=== PATIENT | female | born 1955 | race American Indian/Alaskan Native ===

== ENCOUNTER 2017-07-15 15:11 | Outpatient (CLI) | payer OTHER | END 2017-07-15 15:12 | disposition home or self-care (01) | LOC: LABHHL 15:11 | PROVIDERS: ATTEND Surgery | DX: C50.912 Malignant neoplasm of unspecified site of left female breast (principal) | CPT/HCPCS: 88305; 88361 ==

== ENCOUNTER 2017-07-24 14:38 | Outpatient (CLI) | payer OTHER ==
--- NOTE | 2017-07-25 09:21 | Magnetic Resonance Report ---
BILATERAL BREAST MRI WITHOUT AND WITH CONTRAST: 07/24/17 14:38:00 CLINICAL: Newly diagnosed left breast cancer. Status post ultrasound guided needle biopsy 07/15/17 with pathologic diagnosis of invasive mammary carcinoma grade 2. COMPARISON:[facility] mammogram from 07/12/17 and a post biopsy left mammogram 07/15/17. TECHNIQUE: Axial 1.0-mm T1 without, axial high resolution 2.0-mm T2 and axial 1.0-mm dynamic Vibrant high-resolution postcontrast T1 fat saturation sequences on a 1.5 Prema magnet. The examination was performed with an 8 channel dedicated [place] breast coil. Post processing with CAD and subtraction was performed on an [employer] workstation. 20 cc of Multihance was injected without incident for the contrast portion of the exam. Consent was obtained prior to the administration of the contrast. FINDINGS: Right: Minimal background parenchymal enhancement. No mass or suspicious enhancement of the right breast. No suspicious right axillary or right internal mammary lymph nodes. Left: Minimal background parenchymal enhancement. The known cancer is an irregular enhancing mass at 8 o'clock 7 cm from the nipple and 7.7 cm from the chest wall measuring 2.8 x 1.9 x 1.9 cm. It demonstrates heterogeneous enhancement with mixed kinetics, 420% peak enhancement and 38% type III washout. A second suspicious mass is identified at 8 o'clock 4.3 cm from the nipple and measures 6.9 x 6.8 x 3.6 mm. It demonstrates heterogeneous enhancement with mixed kinetics, 343% peak enhancement and 66% type III washout. No other mass or suspicious enhancement of the left breast. No suspicious left axillary or left internal mammary lymph nodes. IMPRESSION: Known 2.8 cm left breast cancer at 8 o'clock 7 cm from the nipple and a second suspicious mass at 8 o'clock 4.3 cm from the nipple. Together, the 2 masses span a distance of approximately 4.5 cm posterior to anterior toward the nipple. Negative right breast. No suspicious lymph nodes. LEFT BI-RADS 6 -- Known Cancer RIGHT BI-RADS 1 -- Negative
== END 2017-07-24 14:39 | disposition home or self-care (01) ==
LOC: SPVIMAG 14:38
PROVIDERS: ATTEND Surgery
DX: C50.312 Malignant neoplasm of lower-inner quadrant of left female breast (principal)
CPT/HCPCS: 0159T; A9577; C8908; 77059

== ENCOUNTER 2017-09-04 09:44 | Day surgery (SDC) | payer OTHER ==
[2017-09-04] MEDS ORDERED: XYLOCAINE 1% 20 mL ONE (10:36)
[2017-09-04] MEDS ORDERED: HEPARIN 10,000 UNITS/10 ML ONE (10:36)
[2017-09-04] MEDS ORDERED: MARCAINE 0.25% INFILTRATI ONE ×2 (10:36→11:59)
[2017-09-04] MEDS ORDERED: NACL 0.9% 100 ML ONE (10:37)
[2017-09-04 10:43] LABS: Basophils % (Auto) 0.8 % (0.0-1.8); Eosinophils % (Auto) 2.6 % (0.0-4.3); Hematocrit 39.7 % (30.3-42.9); Hemoglobin 13.7 gm/dl (10.1-14.3); Mean Corpuscular HGB Conc 34 % (30-34); Mean Corpuscular Hemoglobin 31 pg (28-32); Mean Corpuscular Volume 91 fl (79-97); Platelet Count 282 K/mm3 (140-440); Red Blood Count 4.38 M/mm3 (3.65-5.03); Red Cell Distribution Width 14.9 % (13.2-15.2); White Blood Count 7.2 K/mm3 (4.5-11.0)
--- NOTE | 2017-09-04 10:44 | Short Stay Summary ---
Short Stay Documentation Date of service: 09/04/17 - History Principal diagnosis: left breast ca H&P: obtained from office Past Medical History: cancer (breast), hypertension Past Surgical History: total hip replacement, total knee replacement Social history: no significant social history - Allergies and Medications Current Medications: Allergies Penicillins Allergy (Verified 09/02/17 14:24) Unknown-happened as a child Sulfa (Sulfonamide Antibiotics) Allergy (Verified 09/02/17 14:24) Anaphylaxis Home Medications Medication Instructions Recorded Confirmed Last Taken Type [place]-3 Fatty Acids/Fish Oil [Fish 1,000 mg PO DAILY 09/02/17 09/04/17 09/02/17 09:00 History Oil] RX: Etodolac (Nf) 400 mg PO BID 09/02/17 09/04/17 09/02/17 09:00 History RX: Omeprazole 20 mg PO DAILY 09/02/17 09/04/17 09/04/17 05:00 History Triamterene/Hydrochlorothiazid 1 tab PO DAILY 09/02/17 09/04/17 09/04/17 History [Triamterene-Hctz 75-50 mg Tab] 0500 Active Medications Vancomycin HCl (Vancomycin/Ns 1 Gm/250 Ml) 1 gm in 250 mls @ 166.667 mls/hr IV PREOP NR - Brief post op/procedure progress note Date of procedure: 09/04/17 Pre-op diagnosis: left breast cancer Post-op diagnosis: same Procedure: Port a cath placement right internal jugular vein Anesthesia: GETA Findings: Port in good position and no PTX on intraop portable CXR Surgeon: SHELLIE FAUST Estimated blood loss: minimal Pathology: none Condition: stable - Hospital course Hospital course: 62 yo F with left breast cancer presented for elective port placement. Her post op course was uncomplicated and the patient was recovered in PACU. She was discharged to home when criteria met. - Disposition Condition at discharge: Stable Disposition: DC-01 TO HOME OR SELFCARE - Discharge Diagnoses (1) Breast cancer, left Status: Acute Short Stay Discharge Plan Activity: other (no driving if taking percocet) Diet: regular Wound: open to air, other (may shower tomorrow, do not submerge incisions in baths/hottubs/pools until healed. Pat dry, do not scrub skin glue.) Additional Instructions: call surgeon's office if fever >100.4, redness around incision, pus draining from incision Follow up with oncology tomorrow 09/05/17 Follow up with: SHELLIE FAUST DO [Staff Physician] - 14 Days
[2017-09-04] MEDS ORDERED: DIPRIVAN 10 MG/ML IV ONE (10:46)
[2017-09-04] MEDS ORDERED: SUBLIMAZE ONE (10:46)
[2017-09-04] MEDS ORDERED: VANCOMYCIN/NS 1 GM/250 ML 1 GM/250 ML BAG IV NR (11:00)
--- NOTE | 2017-09-04 11:01 | Anesthesia Consultation ---
Anesthesia Consult and Med Hx Date of service: 09/04/17 - Airway Anesthetic Teeth Evaluation: Good ROM Head & Neck: Adequate Mental/Hyoid Distance: Adequate Mallampati Class: Class II Intubation Access Assessment: Probably Good - Pulmonary Exam CTA: Yes - Cardiac Exam Cardiac Exam: RRR - Pre-Operative Health Status ASA Pre-Surgery Classification: ASA3 Proposed Anesthetic Plan: General - Pulmonary Hx Asthma: Yes ( A CHILD) Hx Sleep Apnea: Yes - Cardiovascular System Hx Hypertension: Yes (10Y) - Central Nervous System Hx Neuromuscular Disorder: Yes (arthritis R TKR, R hip) Hx Psychiatric Problems: No - Gastrointestinal Hx Gastroesophageal Reflux Disease: Yes - Other Systems Hx Alcohol Use: No Hx Substance Use: No Hx Cancer: Yes (left breast cancer)
[2017-09-04] MEDS ORDERED: PERCOCET 5/325 PO PRN (11:36)
[2017-09-04] MEDS ORDERED: HEPARIN 10,000 UNITS/10 ML IV ONE (11:52)
[2017-09-04] MEDS ORDERED: NACL 0.9% IR ONE (11:52)
[2017-09-04] MEDS ORDERED: NACL 0.9% IV ONE (11:53)
[2017-09-04] MEDS ORDERED: XYLOCAINE 1% 20 mL INFILTRATI ONE (11:53)
[2017-09-04] MEDS ORDERED: VERSED IV NR (12:00)
[2017-09-04] MEDS ORDERED: LACTATED RINGERS 1,000 ML IV SCH (12:00)
[2017-09-04] MEDS ORDERED: ePHEDrine SULFATE ONE (12:07)
[2017-09-04] MEDS ORDERED: QUELICIN ONE (12:14)
[2017-09-04] MEDS ORDERED: XYLOCAINE MPF 2% ONE (12:14)
[2017-09-04] MEDS ORDERED: ROBINUL ONE (12:14)
[2017-09-04] MEDS ORDERED: DECADRON ONE (12:14)
[2017-09-04] MEDS ORDERED: ZEMURON IV ONE (12:14)
[2017-09-04] MEDS ORDERED: ZOFRAN ONE (12:14)
[2017-09-04] MEDS ORDERED: NEOSTIGMINE ONE (12:14)
--- NOTE | 2017-09-04 13:42 | Fluoroscopy Report ---
AP CHEST: 09/04/17 CLINICAL: Status post Tbckml-v-Iwxz placement. FINDINGS: Right Yukxzf-n-Wlkn tip is in the distal SVC. Lungs are normally expanded and clear. Normal heart and pulmonary vessels. IMPRESSION: Satisfactory placement of Awlxmt-b-Jiyh.
[2017-09-04] MEDS: MORPHINE IV PRN ×2 (13:45→14:10)
--- NOTE | 2017-09-04 13:48 | Operative Report ---
Operative Report Operative Report: Date of operation: 09/04/17 Preoperative diagnosis: Left breast cancer Postoperative diagnosis: same as above Procedure performed: Placement of Port-A-Cath Surgeon: Cristina wen DO Anesthesia: Gen. endotracheal anesthesia Findings: Intraoperative chest x-ray showed good positioning of port without pneumothorax. There was blood return from the port. Estimated blood loss: 10 mL Complications: None Condition: Stable to PACU Indication: Patient 62-year-old female who was diagnosed with left-sided breast cancer and is followed by Dr. Figueredo and oncology as an outpatient. She is a candidate for chemotherapy and therefore was referred for port placement. All risks and benefits were discussed with the patient including infection, bleeding, pneumothorax, mal positioning of the port, injury to other structures. All questions were answered and the patient signed the consent. Procedure in detail: Patient was identified in the preoperative area and taken back to the operating room, placed on the operating room table in supine position. After anesthesia was induced the upper chest and neck was prepped and draped in the usual sterile fashion and timeout was performed. The patient was placed in Trendelenburg position and using her clavicle as a landmark an attempt was made to access the subclavian vein on the right-hand side. Despite 2 attempts, I was unable to access the subclavian vein. Therefore the decision was made to access the internal jugular vein on the right side. Using ultrasound guidance internal jugular vein was identified and compressible. The internal jugular vein on the right was accessed on the first stick with return of dark red nonpulsatile blood. A wire was threaded through the needle easily without resistance. The needle was then removed and wire secured to the drapes using a hemostat. The positioning of the wire in the SVC was confirmed with fluoroscopy. A 5 cm incision was then made in the right upper chest using a 15 blade. Dissection was carried down through the skin and subcutaneous tissue using Bovie electrocautery with hemostasis achieved along the way. Local anesthetic was then infiltrated into the skin and subcutaneous tissue of the pocket. Pocket was bluntly developed using a gloved finger. Hemostasis was achieved with Bovie electrocautery. The catheter was then tunneled from the pocket to the wire. Using fluoroscopy the sheath and dilator complex was introduced over the wire without resistance. The dilator and wire was then removed and the catheter inserted through the breakaway sheath, and the sheath slowly removed. The catheter sat flush under the skin. Using fluoroscopy, the catheter was then pulled back until the tip was seen at the cavoatrial junction. The catheter was then cut to size and port attached. The port was then sutured into place in 2 locations to the fascia using interrupted 2-0 Vicryl stitches. The port was then flushed with heparinized saline and there was return of dark red blood. The catheter was then filled with 3000 units of heparin. The wound was irrigated with saline and hemostasis ensured. The deep Dermal layer was closed with interrupted 3-0 Vicryl sutures. The skin of both incisions was closed using 4-0 Monocryl subcuticular stitch and skin glue. End of the case, all sponge, instrument, sharp counts were correct 2. Patient was woke from anesthesia and extubated. A postoperative x-ray was performed which showed the port in good position without evidence of pneumothorax. The patient was taken to PACU in stable condition.
[2017-09-04 16:49] VITALS: BP 141/80
--- NOTE | 2017-09-04 17:52 | Post Anesthesia Evaluation ---
- Post Anesthesia Evaluation Patient Participated: Yes Airway Patent: Yes Stable Respiratory Function: Yes Nausea/Vomiting: No Temp > 96.8F: Yes Pain Manageable: Yes Adequeate Hydration: Yes Anesthesia Complications: No
== END 2017-09-04 15:55 | disposition home or self-care (01) ==
LOC: OR 09:44
PROVIDERS: ATTEND Surgery
DX: C50.912 Malignant neoplasm of unspecified site of left female breast (principal); J45.909 Unspecified asthma, uncomplicated; M19.90 Unspecified osteoarthritis, unspecified site; I10 Essential (primary) hypertension; K21.9 Gastro-esophageal reflux disease without esophagitis; Z88.0 Allergy status to penicillin; Z88.2 Allergy status to sulfonamides; Z79.899 Other long term (current) drug therapy; Z96.652 Presence of left artificial knee joint; Z96.642 Presence of left artificial hip joint
CPT/HCPCS: 36415; 36558; 77001; 85025; C1788; J0330; J1100; J1644; J2250; J2270; J2405; J2704; J2710; J3010; J3370; J7120

== ENCOUNTER 2018-03-12 07:41 | Day surgery (SDC) | payer MEDICARE, OTHER ==
[2018-03-12] MEDS ORDERED: XYLOCAINE 1% 20 mL INFILTRATI NR (08:26)
[2018-03-12] MEDS ORDERED: VANCOMYCIN/NS 1 GM/250 ML 1 GM/250 ML BAG IV SCH (08:37)
[2018-03-12] MEDS ORDERED: XYLOCAINE 1% 20 mL ONE (08:52)
[2018-03-12] MEDS ORDERED: DEMEROL IV PRN (09:15)
[2018-03-12] MEDS ORDERED: ZOFRAN IV PRN (09:15)
[2018-03-12] MEDS ORDERED: DILAUDID IV PRN (09:15)
--- NOTE | 2018-03-12 09:15 | Anesthesia Consultation ---
Anesthesia Consult and Med Hx Date of service: 03/12/18 - Airway Anesthetic Teeth Evaluation: Good ROM Head & Neck: Adequate Mental/Hyoid Distance: Adequate Mallampati Class: Class III Intubation Access Assessment: Possibly Difficult - Pulmonary Exam CTA: Yes - Cardiac Exam Cardiac Exam: RRR - Pre-Operative Health Status ASA Pre-Surgery Classification: ASA2 Proposed Anesthetic Plan: General - Pulmonary Hx Asthma: Yes ( A CHILD) Hx Sleep Apnea: Yes - Cardiovascular System Hx Hypertension: Yes (10Y) - Central Nervous System Hx Neuromuscular Disorder: Yes (arthritis R TKR, R hip) Hx Psychiatric Problems: No - Gastrointestinal Hx Gastroesophageal Reflux Disease: Yes - Other Systems Hx Alcohol Use: No Hx Substance Use: No Hx Cancer: Yes (left breast cancer)
--- NOTE | 2018-03-12 09:15 | Anesthesia Day of Surgery ---
Anesthesia Day of Surgery - Day of Surgery Patient Examined: Yes Patient H&P Reviewed: Yes Patient is NPO: Yes
[2018-03-12] MEDS ORDERED: VERSED IV NR (10:00)
[2018-03-12] MEDS ORDERED: PEPCID IV NR (10:00)
[2018-03-12] MEDS ORDERED: LACTATED RINGERS 1,000 ML IV SCH (10:00)
[2018-03-12] MEDS ORDERED: VANCOMYCIN PHARMACY TO DOSE IV SCH (10:00)
[2018-03-12] MEDS ORDERED: TRANSDERM-SCOP TD NR (10:00)
[2018-03-12] MEDS ORDERED: SUBLIMAZE ONE (10:17)
[2018-03-12] MEDS ORDERED: DECADRON ONE ×2 (10:17→11:32)
--- NOTE | 2018-03-12 10:39 | Mammography Report ---
NEEDLE LOCALIZATION AND HOOKWIRE PLACEMENT X2 LEFT BREAST:03/12/18 CLINICAL: Known left breast cancer and a second highly suspicious lesion.. COMPARISON: 02/13/18 FINDINGS: Using mammographic guidance, 1% lidocaine local anesthesia and sterile technique, two 5-cm [place] hookwires were placed from a medial approach to localize the known cancer with a biopsy clip and a more anterior highly suspicious lesion with a clip. The more posterior wire brackets the posterior aspect of the known cancer. Two views demonstrated satisfactory targeting and the hookwires were satisfactorily deployed. The patient tolerated the procedure well and there were no apparent complications. IMPRESSION: Uncomplicated hookwire placement at 2 sites left breast.
[2018-03-12] MEDS ORDERED: METHYLENE BLUE ONE (10:41)
--- NOTE | 2018-03-12 10:53 | Short Stay Summary ---
Short Stay Documentation Date of service: 03/12/18 - History H&P: obtained from office - Allergies and Medications Current Medications: Allergies Penicillins Allergy (Verified 03/10/18 10:30) Unknown-happened as a child Sulfa (Sulfonamide Antibiotics) Allergy (Verified 03/10/18 10:30) Anaphylaxis Home Medications Medication Instructions Recorded Confirmed Last Taken Type [place]-3 Fatty Acids/Fish Oil [Fish 1,000 mg PO DAILY 09/02/17 03/12/18 2 Weeks Ago History Oil] ~02/26/18 Omeprazole 20 mg PO DAILY 09/02/17 03/12/18 03/12/18 06:00 History Triamterene/Hydrochlorothiazid 1 tab PO DAILY 09/02/17 03/12/18 03/11/18 History [Triamterene-Hctz 75-50 mg Tab] oxyCODONE /ACETAMINOPHEN [Percocet 1 tab PO Q6H PRN #20 tablet 09/04/17 2 Months Ago Rx 5/325 mg] ~01/10/18 Anastrozole (Nf) [Arimidex (Nf)] 1 mg PO DAILY 03/12/18 03/12/18 03/11/18 History HYDROcodone/APAP 5-325 [[place] 1 each PO Q6HR PRN #30 tablet 03/12/18 Unknown Rx 5/325] Active Medications Famotidine (Pepcid) 20 mg IV PREOP NR Stop: 03/12/18 11:00 Last Admin: 03/12/18 09:57 Dose: 20 mg Hydromorphone HCl (Dilaudid) 0.5 mg IV Q10MIN PRN PRN Reason: Pain , Severe (7-10) Stop: 03/12/18 14:00 Vancomycin HCl (Vancomycin/Ns 1 Gm/250 Ml) 1 gm in 250 mls @ 166.667 mls/hr IV PREOP MILAGROS Stop: 03/12/18 12:00 Last Admin: 03/12/18 10:24 Dose: 166.667 mls/hr Lactated Ringer's (Lactated Ringers) 1,000 mls @ 100 mls/hr IV DIRECT MILAGROS Last Admin: 03/12/18 09:55 Dose: 100 mls/hr Meperidine HCl (Demerol) 25 mg IV ONCE PRN PRN Reason: Shivering Stop: 03/12/18 14:00 Midazolam HCl (Versed) 2 mg IV PREOP NR Stop: 03/12/18 23:59 Ondansetron HCl (Zofran) 4 mg IV ONCE PRN PRN Reason: Nausea And Vomiting Stop: 03/12/18 15:00 Scopolamine (Transderm-Scop) 1 each TD PREOP NR Stop: 03/12/18 23:59 Last Admin: 03/12/18 09:58 Dose: 1 each Vancomycin HCl (Vancomycin Pharmacy To Dose) 1 each IV PKCONSULT MILAGROS - Brief post op/procedure progress note Date of procedure: 03/12/18 Pre-op diagnosis: Left breast cancer of the lower inner quadrant Post-op diagnosis: same Procedure: Left needle localization partial mastectomy and x2 SLNB Anesthesia: GETA Findings: Left radiograph specimen with wire and clips present; x SLNs Surgeon: RADHA CHAUHAN Insole Doubler: BIANCA BURNS Estimated blood loss: minimal Pathology: list (left partial mastectomy; x2 SLNB) Specimen disposition: to lab Condition: stable - Disposition Condition at discharge: Good Disposition: DC-01 TO HOME OR SELFCARE Short Stay Discharge Plan Activity: other (no heavy lifting) Diet: regular Wound: other (keep incision clean and dry; may shower in 24 hours; no baths, pools or lakes; do not rub or scrub incision) Additional Instructions: REMOVE SCOPOLAMINE PATCH FROM BEHIND RIGHT EAR. Follow up with: ALCIRA BRADY MD [Primary Care Provider] - 7 Days RADHA CHAUHAN MD [Staff Physician] - 7 Days Prescriptions: HYDROcodone/APAP 5-325 [[place] 5/325] 1 each PO Q6HR PRN #30 tablet PRN Reason: Pain
[2018-03-12] MEDS ORDERED: METHYLENE BLUE IV ONE (10:57)
[2018-03-12] MEDS ORDERED: NACL 0.9% IR ONE (10:57)
--- NOTE | 2018-03-12 10:57 | Operative Report ---
Operative Report Operative Report: Date of Service: February 09, 2018 Preoperative diagnosis: Left breast cancer of the lower inner quadrant Postoperative diagnosis: Same Procedure: Left needle localization partial mastectomy of the lower inner quadrant and SLNB Surgeon: Malathi Figueredo MD Event Marketing Intern: PARISH Patterson Anesthesia: General Findings: Left wire and clip present within radiograph specimen; x2 SLNs Complications: None EBL: Minimal Disposition: PACU in good condition Indications for operative procedure: This is a 63 year old lady with Stage II left breast cancer of the lower inner quadrant, [id number] ER/MS positive. She recently completed neoadjuvant chemotherapy, chemotherapy recommended given high recurrence score from Oncotype DX. Recommendations are to proceed with breast conservation. Genetic testing with no significant gene mutation. Procedure in detail: The patient was taken to radiology for wire placement for localization known area of cancer. Anesthesia placed left pectoral block. Patient was then taken to the operating room. Gen. anesthesia was administered. The left nipple was injected with radioisotope and 1 cc of methylene blue dye with 1 cc of saline. The left breast and axilla were prepped and draped in the normal sterile operative fashion. The wire was identified. Timeout was performed. Gamma probe was inserted into the axilla. The area of hot spot was identified. A left axillary incision was made with a 15 blade knife with dissection taken down to the subcutaneous tissues. The axillary fascia was opened with the Bovie cautery. Two SLNS were identified that contained blue dye. All remaining counts were less than 10% of the highest count. Lymph nodes were sent to pathology for permanent processing. Hemostasis was obtained in the left axillary cavity. Axillary cavity was appropriately irrigated and suctioned. Hemostasis was noted. Axillary fascia was approximated and closed using interrupted 3-0 Vicryl and the skin brought together and closed using a running 4-0 Monocryl followed by skin affix. Attention was then taken towards the left breast. Lateral breast incision was made at the 8:00 position encompassing the wires with a 15 blade knife and dissection taken down to the subcutaneous tissues. First began raising of the superior flap with dissection taken down to the pectoralis muscle, followed by raising of the medial flap, inferior flap and lateral flap with all flaps taken down to the pectoralis muscle. The breast area of concern was appropriately removed posteriorly from the pectoralis muscle with the aid of the Bovie cautery. The wires were not encountered. Specimen was marked and then sent to pathology and radiology; radiograph specimen with wires and clips present. Breast cavity was irrigated and hemostasis was obtained. The posterior deep breast tissues were mobilized and then approximated and closed using interrupted 3-0 Vicryl. The subcutaneous tissues were approximated and closed using interrupted 3-0 Vicryl followed by closing of the skin with a running 4-0 Monocryl and skin affix. The patient tolerated surgery very well and she was awaken from anesthesia without any complication and transported to PACU in good condition.
[2018-03-12] MEDS ORDERED: DIPRIVAN 10 MG/ML IV ONE (11:01)
[2018-03-12] MEDS ORDERED: XYLOCAINE MPF 2% ONE (11:13)
[2018-03-12] MEDS ORDERED: NEO SYNEPHRINE/NS Syringe(OR USE) IV ONE (11:13)
[2018-03-12] MEDS ORDERED: NACL P/F VIAL (10 ML) 10 ML ONE (11:15)
[2018-03-12] MEDS ORDERED: ZOFRAN ONE (11:32)
[2018-03-12] MEDS ORDERED: DILAUDID ONE (12:28)
[2018-03-12] MEDS ORDERED: NACL 0.9% 1000 ML 1,000 ML ONE (13:55)
--- NOTE | 2018-03-12 14:54 | Mammography Report ---
SPECIMEN RADIOGRAPH LEFT BREAST: 03/12/18 07:41:00 CLINICAL: Surgical excision of a known cancer. FINDINGS: The targeted mass and 2 biopsy clips along with 2 hookwires are identified in the specimen. IMPRESSION: Excision of the targeted lesion.
[2018-03-12 15:23] VITALS: BP 129/69
== END 2018-03-12 16:06 | disposition home or self-care (01) ==
LOC: OR 07:41
PROVIDERS: ATTEND Surgery
DX: C50.312 Malignant neoplasm of lower-inner quadrant of left female breast (principal); D05.12 Intraductal carcinoma in situ of left breast; I10 Essential (primary) hypertension; J45.909 Unspecified asthma, uncomplicated; G47.30 Sleep apnea, unspecified; K21.9 Gastro-esophageal reflux disease without esophagitis; M19.90 Unspecified osteoarthritis, unspecified site; Z96.651 Presence of right artificial knee joint; Z88.0 Allergy status to penicillin; Z88.2 Allergy status to sulfonamides; Z96.641 Presence of right artificial hip joint; Z17.0 Estrogen receptor positive status [ER+]
CPT/HCPCS: 19281; 19282; 19301; 38525; 38900; 64450; 76098; 78801; 88307; 88333; 88342; A9541; J1100; J1170; J2250; J2370; J2405; J2704; J3010; J3370; J7030; J7120; Q9968

== ENCOUNTER 2019-01-09 10:23 | Outpatient (CLI) | payer MEDICARE | END 2019-01-09 10:24 | disposition home or self-care (01) | LOC: LABHHL 10:23 | PROVIDERS: ATTEND Surgery | DX: N60.01 Solitary cyst of right breast (principal); I10 Essential (primary) hypertension; J45.909 Unspecified asthma, uncomplicated; K21.9 Gastro-esophageal reflux disease without esophagitis; M19.90 Unspecified osteoarthritis, unspecified site | CPT/HCPCS: 88112 ==

== ENCOUNTER 2020-03-15 13:03 | Outpatient (CLI) | payer MEDICARE | END 2020-03-15 13:04 | disposition home or self-care (01) | LOC: SPVIMAG 13:03 | PROVIDERS: ATTEND Surgery | DX: N64.89 Other specified disorders of breast (principal); Z85.3 Personal history of malignant neoplasm of breast | CPT/HCPCS: A9577; C8908; 77049 ==

== ENCOUNTER 2021-02-14 11:01 | Outpatient (CLI) | payer MEDICARE ==
--- NOTE | 2021-02-14 13:22 | Magnetic Resonance Report ---
Bilateral breast MR without and with contrast. History: History of left breast lumpectomy. Comparison: 07/28/2020, 03/15/2020. Technique: Multiplanar multisequence MR images of the breast were obtained before and after the intra venous administration of intravenous contrast. Post processing analysis and review was performed on a separate computer workstation. Findings: Breast composition is scattered fibroglandular. There is minimal background parenchymal enhancement w ithin both breasts. Stable postsurgical change within the left lower inner breast. No discrete enhancing mass, dominant f ocus, or other abnormal enhancement is identified within either breast. No evidence of malignancy. No abnormal axillary or internal mammary lymph nodes. Impression: No evidence of malignancy status post left breast lumpectomy. Patient will be due for routine screeni ng mammogram in July 2021. BIRADS 2: Benign A normal MRI does not exclude the presence of some forms of breast malignancy as literature reports s uggest that some forms of ductal carcinoma in situ or lobular carcinoma, particularly, may not be det ected on MRI. The sensitivity and specificity of MRI for cancers under 5 mm may be reduced. MRI does not replace the recommendation for annual conventional mammographic evaluation and should be used as an adjunct to mammography and physical examination as necessary. Signer Name: Jonny Pimentel MD Signed: 02/14/2021 1:17 PM Workstation Name: [id number]
== END 2021-02-14 11:02 | disposition home or self-care (01) ==
LOC: SPVIMAG 11:01
PROVIDERS: ATTEND Surgery
DX: Z12.31 Encounter for screening mammogram for malignant neoplasm of breast (principal); Z85.3 Personal history of malignant neoplasm of breast
CPT/HCPCS: A9575; C8908; 77049

== ENCOUNTER 2021-11-28 13:08 | Outpatient (CLI) | payer MEDICARE ==
--- NOTE | 2021-11-29 11:47 | Mammography Report ---
DIGITAL SCREENING MAMMOGRAM WITH CAD, 11/28/2021 CLINICAL INFORMATION / INDICATION: Routine screening mammography. SCREENING MAMMO Z12.31 TECHNIQUE: Digital bilateral 2D mammography was obtained in the craniocaudal and mediolateral obliqu e projections. This examination was interpreted with the benefit of Computer-Aided Detection analysis . COMPARISON: 07/28/2020 and 07/27/2019 FINDINGS: Breast Density: There are scattered areas of fibroglandular density. No dominant mass, suspicious calcifications, or architectural distortion in either breast. Scarring again seen on the left. IMPRESSION: No mammographic evidence of malignancy. Follow up recommendation: Routine yearly BI-RADS Category 2: BENIGN. A "normal" or negative report should not discourage follow up or biopsy of a clinically significant f inding. A written summary of these findings will be mailed to the patient. The patient will be entered into a mammography reporting system which will generate a reminder letter for the patient's next appointmen t at the appropriate interval. The [employer] recommends yearly mammograms starting at age 40 and continuing as l stephen as a woman is in good health. Breast MRI is recommended for women with an approximate 20-25% or greater lifetime risk of breast cancer, including women with a strong family history of breast or ova thalia cancer or who have been treated for Hodgkin's disease. Signer Name: Rafa mSith MD Signed: 11/29/2021 10:33 AM Workstation Name: [email or web address]
== END 2021-11-28 13:09 | disposition home or self-care (01) ==
LOC: SPVWC 13:08
PROVIDERS: ATTEND Surgery
DX: Z12.31 Encounter for screening mammogram for malignant neoplasm of breast (principal)
CPT/HCPCS: 77067